=== PATIENT | female | born 1990 | race Caucasian/White ===

== ENCOUNTER 2023-03-13 18:17 | Emergency (ER) | payer MEDICAID, OTHER ==
[~2023-03-13] VITALS: Ht 177 cm; Wt 125.0 kg
--- NOTE | 2023-03-13 18:21 | ED GI ---
General Chief Complaint: Abdominal/GI Problems Stated Complaint: RT FLANK/RT ABD PAIN History of Present Illness Date Seen by Provider: March 13, 2023 Time Seen by Provider: 18:21 Initial Comments 32-year-old female presents with right flank pain and right lower abdominal pain. Patient rates reports that her around a week ago she was diagnosed with a kidney stone. Patient has a history of kidney stones reports that she has had "15 in the past" patient reports that they are down here visiting and she forgot her pain medication, nausea medication and Flomax. Patient reports she has anaphylactic reaction to NSAIDs. She is unsure what pain medication she had been on. Allergies and Home Medications Allergies Coded Allergies: NSAIDS (Non-Steroidal Anti-Inflamma (Verified Allergy, Severe, Anaphylaxis, 03/13/23) Patient Home Medication List Home Medication List Reviewed: Yes Hydrocodone/Acetaminophen (Hydrocodone-Acetamin 5-325 mg) 5 Mg-325 Mg Tablet, 1 TAB PO Q8H PRN for PAIN-MODERATE (5-7) Prescribed by: WILL MAYO on 03/13/23 192 Ondansetron (Ondansetron Odt) 4 Mg Tab.rapdis, 4 MG PO Q6H PRN for NAUSEA/VOMITING Prescribed by: WILL MAYO on 03/13/231855 Tamsulosin HCl (Flomax) 0.4 Mg Cap, 0.4 MG PO DAILY Prescribed by: WILL MAYO on 03/13/231855 Review of Systems Review of Systems Constitutional: no symptoms reported EENTM: No Symptoms Reported Respiratory: No Symptoms Reported Cardiovascular: No Symptoms Reported Gastrointestinal: Abdominal Pain, Nausea Genitourinary: Flank Pain Musculoskeletal: no symptoms reported Skin: no symptoms reported Psychiatric/Neurological: No Symptoms Reported Physical Exam Vital Signs Vital Signs - First Documented 03/13/23 18:33 Temp 36.7 Pulse 102 Resp 16 B/P (MAP) 138/64 (88) Pulse Ox 100 O2 Delivery Room Air Capillary Refill : Height/Weight/BMI Height: '" Weight: lbs. oz. kg; BMI Method: General Appearance: WD/WN, no apparent distress Respiratory: lungs clear, normal breath sounds Cardiovascular: normal peripheral pulses, regular rate, rhythm Back: CVA tenderness (R) Neurologic/Psychiatric: alert, normal mood/affect, oriented x 3 Skin: normal color, warm/dry Progress/Results/Core Measures Results/Orders Lab Results Laboratory Tests Test 03/13/23 18:25 Range/Units Urine Color YELLOW Urine Clarity CLOUDY Urine pH 6.0 5-9 Urine Specific Sellers 1.020 1.016-1.022 Urine Protein NEGATIVE NEGATIVE Urine Glucose (UA) NEGATIVE NEGATIVE Urine Ketones 2+ H NEGATIVE Urine Nitrite NEGATIVE NEGATIVE Urine Bilirubin 1+ H NEGATIVE Urine Urobilinogen 0.2 < = 1.0 MG/DL Urine Leukocyte Esterase NEGATIVE NEGATIVE Urine RBC (Auto) TRACE-I H NEGATIVE Urine RBC 5-10 H /HPF Urine WBC 10-25 H /HPF Urine Squamous Epithelial Cells >50 H /HPF Urine Crystals NONE /LPF Urine Bacteria LARGE H /HPF Urine Casts NONE /LPF Urine Mucus NEGATIVE /LPF Urine Culture Indicated NO My Orders Orders - WILL MAYO DO Metoclopramide Injection (Reglan Injecti (03/13/23 18:30) Hydrocodone/Apap 5/325 Tablet (Lortab 5 (03/13/23 18:30) Ct Abdomen/Pelvis Wo (03/13/23 18:30) Ua Culture If Indicated (03/13/23 18:30) Medications Given in ED Current Medications Medications Dose Ordered Sig/Kirsten Route Start Time Stop Time Status Last Admin Dose Admin Acetaminophen/ Hydrocodone Bitart 1 ea ONCE ONCE PO 03/13/23 18:30 03/13/23 18:34 DC 03/13/23 18:42 1 EA Vital Signs/I&O 03/13/23 03/13/23 18:33 20:00 Temp 36.7 36.7 Pulse 102 102 Resp 16 16 B/P (MAP) 138/64 (88) 138/64 Pulse Ox 100 100 O2 Delivery Room Air Room Air Progress Progress Note : Progress Note Patient with questionable stone on CT. Patient urine appears to be contaminated so antimicrobial will not be started. Patient has a primary care provider or urologist at home which I recommend she follow-up with when she gets back after the weekend. Patient was given a minimal amount of pain medication. I do have concerns following review of her narcotic prescriptions that she may be possibly pain seeking so it was limited to 5. Patient was also provided with Zofran and Flomax. I did discuss findings of her CT that it Malka is a 0.4 mm stone that should pass without difficulty and not cause significant amount of pain. Patijose alejandro t was stable upon discharge. Diagnostic Imaging Diagonstic Imaging: CT Plain Films/CT/US/NM/MRI: abdomen, pelvis Comments Date of Exam:03/13/23 CT ABDOMEN/PELVIS WO PROCEDURE: CT abdomen and pelvis without contrast. TECHNIQUE: Multiple contiguous axial images were obtained through the abdomen and pelvis without the use of intravenous contrast. Auto Exposure Controls were utilized during the CT exam to meet ALARA standards for radiation dose reduction. INDICATION: Kidney stone, right flank pain. COMPARISON: None available. FINDINGS: The visualized lung bases are clear. Cholecystectomy. The liver is mildly enlarged. Otherwise, the unenhanced liver and spleen are unremarkable. The adrenal glands are unremarkable. The pancreas is unremarkable. A 0.4 cm calcification is identified either within, or immediately adjacent to, the distal right ureter. This is adjacent to the distal right ureter. There is no right-sided hydroureteronephrosis. The bilateral kidneys and ureters are otherwise unremarkable. No aneurysmal dilatation of the abdominal aorta. The appendix is unremarkable. The urinary bladder is predominantly decompressed, therefore not well evaluated. Uterus is not visualized, likely surgically absent. No abnormal adnexal mass lesion. No bowel obstruction or pneumatosis. No significant adenopathy, free air or free fluid within the abdomen or pelvis. Grade 1 anterolisthesis of L5 on S1 secondary to bilateral pars intra-articular defects of L5. No acute osseous abnormality. IMPRESSION: 0.4 cm calculus either within, or immediately adjacent to, the distal right ureter. There is however no evidence of right-sided hydroureteronephrosis. It is favored this is immediately adjacent and abutting the right ureter. No evidence of hydroureteronephrosis. Mild hepatomegaly. Cholecystectomy and hysterectomy. Grade 1 anterolisthesis of L5 on S1 secondary to bilateral pars intra-articularis defects of L5. Reviewed: Reviewed by Me, Reviewed/Discussed Departure Impression Primary Impression: Calculus of distal right ureter Disposition: 01 HOME, SELF-CARE Condition: Stable Departure-Patient Inst. Referrals: NO,LOCAL PHYSICIAN (PCP/Family) Primary Care Physician Patient Instructions: Kidney stones in adults, How to Strain Your Urine Add. Discharge Instructions: Follow-up with your urologist and primary care provider as needed. All discharge instructions reviewed with patient and/or family. Voiced understanding. Scripts Hydrocodone/Acetaminophen (Hydrocodone-Acetamin 5-325 mg) 5 Mg-325 Mg Tablet 1 TAB PO Q8H PRN for PAIN-MODERATE (5-7), #5 TAB Prov: WILL MAYO DO 03/13/23 Tamsulosin HCl (Flomax) 0.4 Mg Cap 0.4 MG PO DAILY, #7 CAP Prov: WILL MAYO DO 03/13/23 Ondansetron (Ondansetron Odt) 4 Mg Tab.rapdis 4 MG PO Q6H PRN for NAUSEA/VOMITING, #20 TAB 0 Refills Prov: WILL MAYO DO 03/13/23 WILL MAYO DO March 13, 2023 18:21
[2023-03-13] MEDS ORDERED: METOCLOPRAMIDE INJ 10 MG/2 ML (REGLAN) IM STA (18:30)
[2023-03-13] MEDS ORDERED: HYDROcodone/APAP 5 MG/325 MG (LORTAB) TAB PO ONE (18:30)
[2023-03-13 18:36] LABS: COLOR,URINE YELLOW; GLUCOSE, URINE (UA) NEGATIVE (NEGATIVE); KETONES,URINE 2+ (NEGATIVE); LEUKOCYTE ESTERASE ,URINE NEGATIVE (NEGATIVE); NITRITE,URINE NEGATIVE (NEGATIVE); PROTEIN,URINE NEGATIVE (NEGATIVE)
[2023-03-13 18:39] LABS: BACTERIA,URINE LARGE /HPF; CLARITY,URINE CLOUDY; SQUAMOUS EPITHELIAL CELL,UR >50 /HPF
[2023-03-13] MEDS ORDERED: ACHD5005 PO ×2 (18:56→19:24)
[2023-03-13] MEDS ORDERED: TMSL.4C PO (18:56)
[2023-03-13] MEDS ORDERED: ONDA4TAB11 PO (18:56)
--- NOTE | 2023-03-13 19:09 | Diagnostic Imaging Report ---
PROCEDURE: CT abdomen and pelvis without contrast. TECHNIQUE: Multiple contiguous axial images were obtained through the abdomen and pelvis without the use of intravenous contrast. Auto Exposure Controls were utilized during the CT exam to meet ALARA standards for radiation dose reduction. INDICATION: Kidney stone, right flank pain. COMPARISON: None available. FINDINGS: The visualized lung bases are clear. Cholecystectomy. The liver is mildly enlarged. Otherwise, the unenhanced liver and spleen are unremarkable. The adrenal glands are unremarkable. The pancreas is unremarkable. A 0.4 cm calcification is identified either within, or immediately adjacent to, the distal right ureter. This is adjacent to the distal right ureter. There is no right-sided hydroureteronephrosis. The bilateral kidneys and ureters are otherwise unremarkable. No aneurysmal dilatation of the abdominal aorta. The appendix is unremarkable. The urinary bladder is predominantly decompressed, therefore not well evaluated. Uterus is not visualized, likely surgically absent. No abnormal adnexal mass lesion. No bowel obstruction or pneumatosis. No significant adenopathy, free air or free fluid within the abdomen or pelvis. Grade 1 anterolisthesis of L5 on S1 secondary to bilateral pars intra-articular defects of L5. No acute osseous abnormality. IMPRESSION: 0.4 cm calculus either within, or immediately adjacent to, the distal right ureter. There is however no evidence of right-sided hydroureteronephrosis. It is favored this is immediately adjacent and abutting the right ureter. No evidence of hydroureteronephrosis. Mild hepatomegaly. Cholecystectomy and hysterectomy. Grade 1 anterolisthesis of L5 on S1 secondary to bilateral pars intra-articularis defects of L5. Dictated by: Dictated on workstation # [id number]
[2023-03-13 20:00] VITALS: BP 138/64
[2023-03-13 22:17] LABS: BILIRUBIN,URINE 1+ (NEGATIVE)
== END 2023-03-13 20:01 | disposition home or self-care (01) ==
LOC: ER FS 18:19
DX: N20.1 Calculus of ureter (principal); Z87.442 Personal history of urinary calculi
CPT/HCPCS: 74176; 81000

== ENCOUNTER 2023-09-16 23:41 | Emergency (ER) | payer SELFPAY ==
[~2023-09-16] VITALS: Ht 172 cm; Wt 127.8 kg
[~2023-09-16 23:41] MED LIST: ACHD5005 PO; ONDA4TAB11 PO; TMSL.4C PO
[2023-09-16 23:48] VITALS: BP 156/95
--- NOTE | 2023-09-16 23:57 | ED General ---
General Chief Complaint: General Problems/Pain Stated Complaint: HIGH HEART RATE AND CHEST TIGHTENING FOR A WEEK History of Present Illness Date Seen by Provider: Sep 16, 2023 Time Seen by Provider: 23:55 Initial Comments 32-year-old female with PMH of anxiety, back, Chi-Danlos syndrome/fibromyalgia, is here with complaints of anxiety which is causing her to have retrosternal chest pain and she feels as if her heart is racing. Patient is concerned she is having panic attacks. Patient has a lot of stress with her step kids currently and states that in the past 1 week she is unable to sleep well and keeps waking up. Denies cough, fever and chills, nausea vomiting, diaphoresis, chest pain. Allergies and Home Medications Allergies Coded Allergies: NSAIDS (Non-Steroidal Anti-Inflamma (Verified Allergy, Severe, Anaphylaxis, 03/13/23) Patient Home Medication List Home Medication List Reviewed: Yes Hydrocodone/Acetaminophen (Hydrocodone-Acetamin 5-325 mg) 5 Mg-325 Mg Tablet, 1 TAB PO Q8H PRN for PAIN-MODERATE (5-7) Prescribed by: WILL MAYO on 03/13/23 192 Ondansetron (Ondansetron Odt) 4 Mg Tab.rapdis, 4 MG PO Q6H PRN for NAUSEA/VOMITING Prescribed by: WILL MAYO on 03/13/231855 Tamsulosin HCl (Flomax) 0.4 Mg Cap, 0.4 MG PO DAILY Prescribed by: WILL MAYO on 03/13/231855 Review of Systems Review of Systems Constitutional: no symptoms reported EENTM: no symptoms reported Respiratory: no symptoms reported Cardiovascular: see HPI, palpitations Psychiatric/Neurological: Anxiety Physical Exam Vital Signs Vital Signs - First Documented 09/16/23 23:48 Temp 36.7 Pulse 98 Resp 20 B/P (MAP) 156/95 (115) Pulse Ox 100 O2 Delivery Room Air Capillary Refill : Height, Weight, BMI Height: '" Weight: lbs. oz. kg; 39.00 BMI Method: General Appearance: No Apparent Distress, WD/WN, Anxious HEENT: PERRL/EOMI, Normal ENT Inspection Neck: Full Range of Motion, Normal Inspection Respiratory: Lungs Clear Cardiovascular: Regular Rate, Rhythm Neurologic/Psychiatric: Alert, Oriented x3, No Motor/Sensory Deficits, Normal Mood/Affect, chair mechanic II-XII Norm as Tested, Other (Patient is anxious) Skin: Normal Color Progress/Results/Core Measures Suspected Sepsis SIRS Temperature: Pulse: Respiratory Rate: Blood Pressure / Mean: Results/Orders My Orders Orders - JANES LARSEN MD Continuous Ekg Monitoring (09/16/23 23:57) Ekg Tracing (09/16/23 23:57) Vital Signs/I&O 09/16/23 23:48 Temp 36.7 Pulse 98 Resp 20 B/P (MAP) 156/95 (115) Pulse Ox 100 O2 Delivery Room Air Capillary Refill : Progress Note : Progress Note 1. ANXIETY: - EKG:normal sinus rhythm, non-ischemic - Hydroxyzine 25mg STAT - Take home Hydroxyzine to be taken every 6 hours as needed for panic attack/ anxiety - Follow up with PCP and Psychiatry next week. -The patient was seen in the ED, and treated appropriately to presentation at a specific point in time. Patient is informed that there is a possibility that disease and illness can evolve and change in acuity rapidly or slowly after patient is discharged from the ER. Precautionary advice given to the patient for immediate return to ER if symptoms worsen or do not resolve, and to seek emergency care sooner rather than later. Pt also advised on the importance of PCP follow up and compliance with management and follow up plan with PCP and/or specialist, as this is part of the management plan. Pt verbally expressed understanding. ECG Initial ECG Impression Date: Sep 17, 2023 Initial ECG Impression Time: 00:07 Initial ECG Rate: 92 Initial ECG Rhythm: Normal Sinus Initial ECG Intervals: Normal Initial ECG Impression: Normal Initial ECG Comparisson: No Previous ECG Available Departure Impression Primary Impression: Anxiety Disposition: 01 HOME, SELF-CARE Condition: Stable Departure-Patient Inst. Referrals: FLAVIO COSTA MD (PCP/Family) Primary Care Physician Patient Instructions: Anxiety, Adult (DC), Tips to Help You [place] in Uncertain Times Add. Discharge Instructions: - Take home Hydroxyzine to be taken every 6 hours as needed for panic attack/ anxiety - Follow up with PCP and Psychiatry next week. All discharge instructions reviewed with patient and/or family. Voiced understanding. JANES LARSEN MD Sep 16, 2023 23:57
[2023-09-17] MEDS ORDERED: hydrOXYzine 25 MG CAPSULE PO ONE
== END 2023-09-17 00:30 | disposition home or self-care (01) ==
LOC: EDUNIT# 23:41 → ER FS 23:41
DX: F41.9 Anxiety disorder, unspecified (principal)
CPT/HCPCS: 93005